=== PATIENT | male | born 1985 | race Caucasian/White ===

== ENCOUNTER 2018-06-17 16:27 | Emergency (ER) | payer BC ==
[2018-06-17 16:41] VITALS: BP 134/80
[2018-06-17] MEDS ORDERED: Morphine 10 MG/ML VIAL (1 ml) IV ONE (16:47)
[2018-06-17] MEDS ORDERED: Ondansetron INJ* 2 MG/ML VIAL IV ONE (16:48)
[2018-06-17] MEDS ORDERED: NS 0.9% 1000 ML** 1,000 ML BOLUS ONE (16:48)
--- NOTE | 2018-06-17 16:54 | UC ---
Abdominal Pain Male HPI - HPI Summary HPI Summary: 32 yo male with periumbilical adb pain that started yesterday Pain was mild and did not interfere with going to work Today the pain has increased and is located in his RLQ anorexic nausea feverish hurts to change positions or walk no UTI symptoms no back pain no vomiting - History of Current Complaint Chief Complaint: UCAbdominalPain Stated Complaint: ABDOMINAL PAIN Time Seen by Provider: 06/17/18 16:31 Hx Obtained From: Patient Onset/Duration: Gradual Onset, Lasting Hours Timing: Constant Severity Initially: Mild Severity Currently: Severe Pain Intensity: 7 Pain Scale Used: 0-10 Numeric Location: Discrete At: RLQ Radiates: No Character: Aching Aggravating Factor(s): Movement Alleviating Factor(s): Rest, Position Associated Signs And Symptoms: Positive: Fever - duane, Decreased Appetite, Nausea. Negative: Diaphoresis, Cough, Chest Pain, Dizzy, Back Pain, Constipation, Blood in Stool, Urinary Symptoms, Vomiting, Diarrhea, Penile Discharge Male Torso: 1 - markedly tender - Allergies/Home Medications Allergies/Adverse Reactions: Allergies Allergy/AdvReac Type Severity Reaction Status Date / Time cefaclor [From [facility]] Allergy Unknown Verified 06/17/18 16:42 Reaction Details Pertussis Vaccines Allergy Unknown Verified 06/17/18 16:42 Reaction Details Home Medications: Home Medications NK [No Home Medications Reported] 06/17/18 [History Confirmed 06/17/18] PMH/Surg Hx/FS Hx/Imm Hx Previously Healthy: Yes Respiratory History: Pneumonia - x1 - Surgical History Surgical History: None - Family History Known Family History: Positive: Non-Contributory - Social History Alcohol Use: Daily Substance Use Type: None Smoking Status (MU): Former Smoker Review of Systems All Other Systems Reviewed And Are Negative: Yes Constitutional: Positive: Fever - duane Skin: Positive: Negative Eyes: Positive: Negative ENT: Positive: Negative Respiratory: Positive: Negative Cardiovascular: Positive: Negative Gastrointestinal: Positive: Abdominal Pain, Nausea Genitourinary: Positive: Negative Motor: Positive: Negative Neurovascular: Positive: Negative Musculoskeletal: Positive: Negative Neurological: Positive: Negative Psychological: Positive: Negative Physical Exam Triage Information Reviewed: Yes Appearance: Well-Appearing, No Pain Distress, Well-Nourished Vital Signs: Initial Vital Signs Temp 100.3 F 06/17/18 16:37 Pulse 68 06/17/18 16:37 Resp 16 06/17/18 16:37 BP 134/80 06/17/18 16:37 Pulse Ox 100 06/17/18 16:37 Vital Signs Reviewed: Yes Eyes: Positive: Conjunctiva Clear ENT: Positive: Hearing grossly normal. Negative: Nasal congestion, Nasal drainage, Tonsillar swelling, Tonsillar exudate, Trismus, Muffled voice, Hoarse voice, Uvula midline Dental Exam: Normal Neck: Positive: Supple, Nontender, No Lymphadenopathy Respiratory: Positive: Lungs clear, Normal breath sounds, No respiratory distress, No accessory muscle use Cardiovascular: Positive: RRR, No Murmur Abdomen Description: Positive: Soft, McBurney's Point Tenderness. Negative: Nontender, CVA Tenderness (R), CVA Tenderness (L), Distended, Hepatomegaly, Peritoneal Signs, Pulsatile Mass, Splenomegaly Bowel Sounds: Positive: Present Musculoskeletal: Positive: ROM Intact, No Edema Neurological: Positive: Alert Psychological Exam: Normal Skin Exam: Normal Abd Pain Male Course/Dx - Course Course Of Treatment: discussed with Dr. Clay To [facility] via EMS - Differential Dx/Clinical Impression Provider Diagnosis: RLQ abdominal pain Discharge - Sign-Out/Discharge Documenting (check all that apply): Patient Departure All imaging exams completed and their final reports reviewed: No Studies - Discharge Plan Condition: Stable Disposition: TRANS HIGHER LVL OF CARE FAC - Billing Disposition and Condition Condition: STABLE Disposition: Trans Higher Lvl of Care Fac
== END 2018-06-17 17:30 | disposition short-term general hospital (02) ==
LOC: UCEAST 16:27
DX: R10.31 Right lower quadrant pain (principal); R10.33 Periumbilical pain; R11.0 Nausea; R50.9 Fever, unspecified; Z88.1 Allergy status to other antibiotic agents; Z88.7 Allergy status to serum and vaccine; Z87.891 Personal history of nicotine dependence
CPT/HCPCS: 99213; G0463; J2270; J2405

== ENCOUNTER 2018-06-17 17:51 | Observation (INO) | payer BC ==
[2018-06-17 18:22] LABS: ABS Basophils 0 10^3/ul (0-0.2); ABS Eosinophils 0 10^3/ul (0-0.6); ABS Lymphocytes 0.8 10^3/ul (1.0-4.8); ABS Monocytes 0.7 10^3/ul (0-0.8); ABS Neutrophils 10.8 10^3/ul (1.5-7.7); ABS Nucleated RBC 0 10^3/ul; Eosinophil % 0.1 %; Hematocrit 43 % (36-46); Hemoglobin 14.8 g/dL (14.0-18.0); Lymphocyte % 6.7 %; Mean Corpuscular HGB Conc 34 g/dL (31-36); Mean Corpuscular Hemoglobin 31 pg (27-31); Mean Corpuscular Volume 90 fL (80-94); Mean Platelet Volume 8.3 fL (7.4-10.4); Nucleated Red Blood Cells % 0; Platelet Count 226 10^3/uL (150-450); Red Blood Count 4.82 10^6 /uL (4.18-5.48); Red Cell Distribution Width 13 % (10.5-15); White Blood Count 12.4 10^3/uL (3.5-10.8)
[2018-06-17 18:33] LABS: Activated Partial Thrombo Time 30.6 seconds (26.0-36.3); INR 1.07 (0.82-1.09)
[2018-06-17] MEDS ORDERED: Piperacillin/Tazobac ADVAN(*) 3.375 GM in NS 0.9% 100 ML* 100 ML IVPB ONE (18:51)
[2018-06-17] MEDS ORDERED: Ondansetron INJ* 2 MG/ML VIAL IV ONE (18:54)
[2018-06-17] MEDS ORDERED: Morphine 4 MG/ML VIAL (1 ml) 4 MG/ML VIAL IV ONE ×2 (18:54→22:20)
--- NOTE | 2018-06-17 18:55 | ED ---
Abdominal Pain/Male - HPI Summary HPI Summary: Pt is a 32 y/o M presenting to the ED via EMS from [facility] with a chief complaint of abd pain sudden onset yesterday around 1500 described as an ache. The pain was relatively manageable, and then when he woke up in the night he noticed it was much worse. This morning, he noticed it was even worse than that, and he has been trying to alleviate it all day. The severity was waxing and waning, and currently it feels like a 7-8/10. He reports associated low-grade fever taken at . The last time he ate was approximately 1500 and he had a banana. He denies vomiting, the pain radiating to his testicles, or urinary sx. He had a pilonidal cyst removed and lung drainage when he was younger, and recently lost 130lbs. He denies hx of asthma, thyroid issues, IBS, or kidney stones. He had an allergic reaction to Ceclor when he was young, pt is unsure of the context. Pt also states he thinks he would be fine to take Amoxicillin, Z-pack, or Penicillin. Fhx HTN HLD. Vital signs while in room: HR 59 bpm, BP 114/85, O2 sat 100% Home Medications Medication Instructions Recorded Confirmed Type NK [No Home Medications Reported] 06/17/18 06/17/18 History - History of Current Complaint Chief Complaint: EDAbdPain Time Seen by Provider: 06/17/18 18:01 Hx Obtained From: Patient, Other: - urgent care, Dr. Zendejas Onset/Duration: Lasting Days, Still Present Timing: Constant, Lasting Days Severity Initially: Moderate Severity Currently: Severe Pain Intensity: 6 Pain Scale Used: 0-10 Numeric Location: Discrete At: RLQ Radiates: No Character: Other: - aching Aggravating Factor(s): Nothing Alleviating Factor(s): Nothing Associated Signs And Symptoms: Positive: Fever. Negative: Urinary Symptoms, Vomiting - Allergies/Home Medications Allergies/Adverse Reactions: Allergies Allergy/AdvReac Type Severity Reaction Status Date / Time cefaclor [From Ceclor] Allergy Unknown Verified 06/17/18 16:42 Reaction Details Pertussis Vaccines Allergy Unknown Verified 06/17/18 16:42 Reaction Details PMH/Surg Hx/FS Hx/Imm Hx Previously Healthy: Yes Endocrine/Hematology History: Denies: Hx Thyroid Disease Respiratory History: Denies: Hx Asthma GI History: Denies: Hx Irritable Bowel History: Denies: Hx Kidney Stones - Surgical History Surgery Procedure, Year, and Place: Pilonidal cyst removal, lung drainage due to PNA at age 8 Infectious Disease History: No Infectious Disease History: Denies: Traveled Outside the [place] in Last 30 Days - Family History Known Family History: Positive: Hypertension, Other - HLD - Social History Lives: With Family Alcohol Use: Daily Hx Substance Use: No Substance Use Type: Reports: None Hx Tobacco Use: Yes Smoking Status (MU): Former Smoker Review of Systems Positive: Fever Cardiovascular: Negative Respiratory: Negative Positive: Abdominal Pain. Negative: Vomiting Genitourinary: Negative Musculoskeletal: Negative Skin: Negative Neurological: Negative Psychological: Normal All Other Systems Reviewed And Are Negative: Yes Physical Exam - Summary Physical Exam Summary: Appearance: Ill-appearing, moderate pain distress, well-nourished Skin: Warm, color reflects adequate perfusion, dry Head: Normal Head/Face inspection, atraumatic Eyes: Conjunctiva clear ENT: Normal inspection Neck: Supple, no nodes, no JVD Respiratory: Lungs clear, normal breath sounds, no respiratory distress Cardio: RRR, No murmur, pulses normal, brisk capillary refill Abdomen: Soft, RLQ tenderness, voluntary guarding in the RLQ, no rebound, no masses, non-distended. Bowel sounds: Present Musculoskeletal: Strength Intact/ROM intact, no calf tenderness, no edema. Psychological: Normal Neuro: Alert, muscle tone normal, no focal deficit : No inguinal or femoral hernias. Testicles descended bilaterally, nontender, no masses. Triage Information Reviewed: Yes Vital Signs On Initial Exam: Initial Vitals Temp Pulse Resp BP Pulse Ox 98.3 F 61 16 114/85 99 06/17/18 17:56 06/17/18 17:56 06/17/18 17:56 06/17/18 17:56 06/17/18 17:56 Vital Signs Reviewed: Yes Diagnostics - Vital Signs Vital Signs Temp Pulse Resp BP Pulse Ox 06/17/18 17:56 98.3 F 61 16 114/85 99 - Laboratory Lab Results: Lab Results 06/17/18 06/17/18 Range/Units 18:13 18:13 WBC 12.4 H (3.5-10.8) 10^3/uL RBC 4.82 (4.18-5.48) 10^6 /uL Hgb 14.8 (14.0-18.0) g/dL Hct 43 (36-46) % MCV 90 (80-94) fL MCH 31 (27-31) pg MCHC 34 (31-36) g/dL RDW 13 (10.5-15) % Plt Count 226 (150-450) 10^3/uL MPV 8.3 (7.4-10.4) fL Neut % (Auto) 87.2 % Lymph % (Auto) 6.7 % Dickson % (Auto) 5.6 % Eos % (Auto) 0.1 % Baso % (Auto) 0.4 % Absolute Neuts (auto) 10.8 H (1.5-7.7) 10^3/ul Absolute Lymphs (auto) 0.8 L (1.0-4.8) 10^3/ul Absolute Monos (auto) 0.7 (0-0.8) 10^3/ul Absolute Eos (auto) 0 (0-0.6) 10^3/ul Absolute Basos (auto) 0 (0-0.2) 10^3/ul Absolute Nucleated RBC 0 10^3/ul Nucleated RBC % 0 INR (Anticoag Therapy) 1.07 (0.82-1.09) APTT 30.6 (26.0-36.3) seconds Result Diagrams: 06/17/18 18:13 06/17/18 18:14 Lab Statement: Any lab studies that have been ordered have been reviewed, and results considered in the medical decision making process. Re-Evaluation - Re-Evaluation First Eval Re-Evaluation Time: 19:00 Change: Improved Comment: States pain is improved after morphine. No vomiting. Abdominal Pain Male Course/Dx - Course Course Of Treatment: Pt is a 32 y/o M presenting to the ED with a chief complaint of abd pain onset last night that has gradually progressed to a 7-8/ 10 in severity currently. He reports associated low-grade fever taken at . The last time he ate was approximately 1500 and he had a banana. He denies vomiting, the pain radiating to his testicles, or urinary sx. He had a pilonidal cyst removed and lung drainage when he was younger, and recently lost 130lbs. He denies hx of asthma, thyroid issues, IBS, or kidney stones. He had an allergic reaction to Ceclor when he was young, pt is unsure of the context. Pt also states he thinks he would be fine to take Amoxicillin, Z-pack, or Penicillin. Fhx HTN HLD. The pt will be signed out to Dr. Hernandez pending imaging and dispo. - Diagnoses Differential Diagnosis/HQI/PQRI: Appendicitis, Bowel Obstruction, Gall Bladder Disease, Pancreatitis Provider Diagnoses: Abdominal pain Discharge - Sign-Out/Discharge Documenting (check all that apply): Sign-Out Patient Signing out patient TO: Daniel Hernandez - Discharge Plan Condition: Stable Referrals: Elif Hansen MD [Primary Care Provider] - - Billing Disposition and Condition Condition: STABLE - Attestation Statements Document Initiated by Alexandriaibla: Yes Documenting Scribe: Radha Peter Provider For Whom Honey is Documenting (Include Credential): Dr. Rita Clay MD. Scribe Attestation: Radha Tracy scribed for Dr. Rita Clay MD. on 06/17/18 at 2136. Scribe Documentation Reviewed: Yes Provider Attestation: The documentation as recorded by the Radha mcgovern accurately reflects the service I personally performed and the decisions made by , Dr. Rita Clay MD. Status of Scribe Document: Viewed
[2018-06-17 18:57] LABS: Albumin 4.9 g/dL (3.2-5.2); Albumin/Globulin Ratio 1.9 (1-3); BUN/Creatinine Ratio 16.7 (8-20); C Reactive Protein 16.23 mg/L (<8.01); Calcium 9.7 mg/dL (8.6-10.3); EGFR African American 129.8 (>60); EGFR Non-African American 107.3 (>60); Globulin 2.6 g/dL (2-4); Magnesium 1.9 mg/dL (1.9-2.7); Potassium 4.1 mmol/L (3.5-5.0); Total Bilirubin 1.1 mg/dL (0.2-1.0); Total Protein 7.5 g/dL (6.4-8.9)
[2018-06-17] MEDS ORDERED: Piperacillin/Tazobac (*) 3.375 GM BAG ONE (19:02)
--- NOTE | 2018-06-17 19:16 | ED ---
Progress - Progress Note Progress Note: This patient is signed out from Dr. Clay at 19:00 awaiting an Appendix US. An Appendix US, as per radiologist reveals: Appendix is not visualized. No evidence of free fluid. A CT A/P is ordered, revealing, as per radiologist: Early appendicitis. The appendix is dilated to approximately 1.1 cm. There is a small amount of mesenteric information. No significant free abdominal fluid. No signs of perforation. No associated abscess. No bowel obstruction. ED Physician has reviewed imaging reports. Re-Evaluation - Re-Evaluation First Eval Re-Evaluation Time: 22:50 Change: Unchanged Comment: Results discussed with patient. Informed patient of admission. Course/Dx - Course Course Of Treatment: Patient with worsening pain in the right lower quadrant who is pending CT of the abdomen and pelvis. The CT was positive for early appendicitis per the radiologist. IV Zosyn was given. His pain was improving with treatment. The surgeon was contacted and will plan for operation. - Diagnoses Provider Diagnoses: Appendicitis - Provider Notifications Discussed Care Of Patient With: Rob Bone - surgery Time Discussed With Above Provider: 22:42 Instructed by Provider To: Admit As Inpatient Discharge - Sign-Out/Discharge Documenting (check all that apply): Patient Departure - admit Patient Received Moderate/Deep Sedation with Procedure: No - Discharge Plan Condition: Fair Disposition: ADMITTED TO [facility] - Billing Disposition and Condition Condition: FAIR Disposition: Admitted to [facility] - Attestation Statements Document Initiated by Honey: Yes Documenting Scribe: Cande Snyder Provider For Whom Elizabethe is Documenting (Include Credential): Daniel Hernandez MD Scribe Attestation: Cande Tracy, scribed for Daniel Hernandez MD on 06/18/18 at 0327. Scribe Documentation Reviewed: Yes Provider Attestation: The documentation as recorded by the Cande mcgovern accurately reflects the service I personally performed and the decisions made by , Daniel Hernandez MD Status of Scribe Document: Viewed
[2018-06-17] MEDS ORDERED: Ketorolac INJ* 30 MG/ML 1 ML VIAL IV PUSH ONE (20:04)
[2018-06-17] MEDS ORDERED: Ketorolac INJ* 30 MG/ML 1 ML VIAL ONE (20:05)
[2018-06-17 20:29] LABS: Urine Appearance Clear; Urine Bilirubin Negative (Negative); Urine Blood Negative (Negative); Urine Color Yellow; Urine Glucose Negative (Negative); Urine Ketones 1+ (Negative); Urine Nitrite Negative (Negative); Urine Protein Negative (Negative); Urine Urobilinogen Negative (Negative)
[2018-06-17] MEDS ORDERED: Iohexol 300* (CONTRAST) 10 ML SDV IV ONE (21:04)
[2018-06-17] MEDS ORDERED: Morphine 4 MG/ML VIAL (1 ml) 4 MG/ML VIAL ONE (22:20)
[2018-06-17] MEDS ORDERED: NS 0.9% 1000 ML** 1,000 ML IV ONE (22:20)
[2018-06-17] MEDS ORDERED: Ondansetron INJ* 2 MG/ML VIAL IV PRN (22:56)
[2018-06-17] MEDS ORDERED: Lactated Ringers 1000 ML Bag* 1,000 ML IV SCH (23:00)
[2018-06-18] MEDS: HYDROmorphone INJ1* 1 MG/ML SYRINGE IV SLOW PU PRN ×3 (00:10→06:44)
[2018-06-18] MEDS: Piperacillin/Tazobactam VIAL*) 3.375 GM in NS 0.9% 100 ML* 100 ML IVPB SCH ×2 (00:14→08:05)
[2018-06-18 06:18] LABS: ABS Basophils 0 10^3/ul (0-0.2); ABS Eosinophils 0 10^3/ul (0-0.6); ABS Lymphocytes 1.8 10^3/ul (1.0-4.8); ABS Monocytes 0.8 10^3/ul (0-0.8); ABS Neutrophils 6.4 10^3/ul (1.5-7.7); ABS Nucleated RBC 0 10^3/ul; Eosinophil % 0.3 %; Hematocrit 37 % (36-46); Hemoglobin 12.9 g/dL (14.0-18.0); Lymphocyte % 20.2 %; Mean Corpuscular HGB Conc 35 g/dL (31-36); Mean Corpuscular Hemoglobin 31 pg (27-31); Mean Corpuscular Volume 90 fL (80-94); Mean Platelet Volume 8.6 fL (7.4-10.4); Nucleated Red Blood Cells % 0; Platelet Count 153 10^3/uL (150-450); Red Cell Distribution Width 13 % (10.5-15); White Blood Count 9.1 10^3/uL (3.5-10.8)
[2018-06-18] MEDS: NS 0.9% 1000 ML** 1,000 ML IV SCH ×2 (06:43)
[2018-06-18] MEDS ORDERED: Bupivacaine 0.25% EPI 200,000* 30 ML SDV ONE (10:19)
[2018-06-18] MEDS ORDERED: fentaNYL* 50 MCG/ML 2 ML VIAL (100 MCG VIAL) ONE ×2 (10:31→11:50)
[2018-06-18] MEDS ORDERED: Midazolam* 1 MG/ML 2 ML VIAL (2 MG) ONE (10:32)
[2018-06-18] MEDS ORDERED: Dexamethasone IV* 4 MG/ML 1 ML (4 MG) ONE (10:33)
[2018-06-18] MEDS ORDERED: Ondansetron INJ* 2 MG/ML VIAL ONE ×2 (10:33→12:23)
[2018-06-18] MEDS ORDERED: Ketorolac INJ* 30 MG/ML 1 ML VIAL ONE (10:33)
[2018-06-18] MEDS ORDERED: Lidocaine 2% PF * 5 ML VIAL ONE (10:33)
[2018-06-18] MEDS ORDERED: Propofol* 10 MG/ML 20 ML BTL ONE (10:33)
[2018-06-18] MEDS ORDERED: Rocuronium* 10 MG/ML VIAL ONE (10:34)
[2018-06-18] MEDS ORDERED: Succinylcholine* 20 MG/ML 10 ML VIAL ONE (10:34)
[2018-06-18] MEDS ORDERED: oxyCODONE/Acetamin 5/325 MG* TAB PO ONE (10:54)
[2018-06-18] MEDS ORDERED: Sugammadex * 200 MG/2 ML VIAL IV PUSH ONE (11:16)
[2018-06-18] MEDS ORDERED: EPHEDrine (Pressors)* 50 MG/ML VIAL ONE (11:16)
[2018-06-18] MEDS ORDERED: Naloxone* 0.4 MG/ML 1 ML VIAL IV PRN (11:38)
[2018-06-18] MEDS ORDERED: HYDROmorphone INJ1* 1 MG/ML SYRINGE IV PRN (11:38)
[2018-06-18] MEDS ORDERED: DiMENhydriNATE IV* 50 MG/ML VIAL IV PUSH PRN (11:38)
[2018-06-18] MEDS ORDERED: fentaNYL* 50 MCG/ML 2 ML VIAL (100 MCG VIAL) IV PRN (11:38)
--- NOTE | 2018-06-18 12:54 | HP ---
CC: Dr. Pozo; Dr. Elif Hansen HISTORY AND PHYSICAL: DATE OF ADMISSION: 06/18/18 CHIEF COMPLAINT: Abdominal pain. HISTORY OF PRESENT ILLNESS: The patient is a 32-year-old male in usual state of good health. Then, approximately 36 hours ago, started to have some sharp central abdominal pain. He points to the doni umbilical area. He was somewhat anorexic. He had not had trauma or injury or any antecedent illness. He has not had something like this before and then, by yesterday afternoon, the pain was becoming m ore severe and persistent and shifted to the right lower quadrant, so he decided to come to the [facility] ency room. He has no trauma, accident, or injury. No antecedent illness. No chronic abdominal prob lems. PAST MEDICAL HISTORY: Reveals pneumonia at age 8 that required drainage of fluid from his chest. He has also had pilonidal excision at age 21. MEDICATIONS: He denies regular medications. ALLERGIES: He quotes an allergy to CEFACLOR but has no idea what type of reaction might have been in the past. FAMILY HISTORY: Noncontributory. No bleeding tendencies or anesthesia reactions. No Crohn's disease or colitis in the family. SOCIAL HISTORY: He is . They have 2 young children at home including a . He is home on paternity leave right now. He is a nonsmoker. 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 REVIEW OF SYSTEMS: Multisystem review is relatively benign. No chest pain, heart pain, angina pain, or other cardiac disease. No emphysema, bronchitis, or chronic lung disease. He did have pneumonia as a child but has been fine ever since. He is able to exercise without unusual dyspnea. He has no Crohn's disease, colitis, ulcer disease, kidney disease, kidney stones, or chronic bladder infection s. No hepatobiliary disease. No diabetes, thyroid, or other endocrine. No neuromuscular or psych i ssues. PHYSICAL EXAMINATION GENERAL: He is a well-developed, well-nourished male consistent with stated age. VITAL SIGNS: He is 5 feet 7 inches, 170 pounds with BMI of 26. Heart rate 66, blood pressure 98/54, respirations 16 and unlabored, temperature 99.4 (it was 101.6 in the emergency room), O2 saturations 100%. HEENT: Head and neck are unremarkable. Eyes are clear. NECK: Supple. LUNGS: Clear bilaterally with good aeration. There is a well-healed scar in the lateral right chest consistent with a previous chest tube. HEART: Regular with no abnormal sounds. ABDOMEN: Soft, flat, nondistended. He is quite tender in the right lower quadrant with focal reboun d tenderness. Mild Rovsing sign. Mild cough tenderness. No gross peritonitis and no obvious hernia s. EXTREMITIES: Well perfused and without edema. SKIN: Warm and well perfused. He is not diaphoretic. He is not jaundiced. DIAGNOSTIC STUDIES/LAB DATA: Laboratory studies showed slight elevated white count. Hemoglobin is normal. Electrolytes are normal. CRP is elevated. CAT scan shows evidence of early acute appendicitis. IMPRESSION AND PLAN: Healthy 32-year-old male with evidence of early acute appendicitis. I have discussed this with him at length. He understands the nature of appendicitis, the rationale f or laparoscopic appendectomy. He understands the risks, the recovery, and the alternatives to surger y, and would like to proceed in that fashion, so we will proceed with laparoscopic appendectomy as e operative schedule permits. [id number]/[facility] #: [id number]
[2018-06-18 12:58] VITALS: BP 116/71
--- NOTE | 2018-06-18 20:59 | OP ---
CC: Dr. Yasmany Pozo; Dr. Elif Hansen OPERATIVE REPORT: DATE OF OPERATION: 06/18/18 DATE OF : 89 SURGEON: Yasmany Pozo MD. LOCATION DIRECTOR: None. ANESTHESIOLOGIST: Dr. Mcpherson. ANESTHESIA: General anesthetic, local infiltration. PRE-OP DIAGNOSIS: Appendicitis. POST-OP DIAGNOSIS: Appendicitis. OPERATIVE PROCEDURE: Laparoscopic appendectomy. DESCRIPTION OF PROCEDURE: The patient was supine on the operating room table. After adequate general anesthetic, compression stockings, Parker-Hugger warmer, and intravenous antibiotics, the abdomen was clipped and prepped with antiseptic, draped in a sterile fashion. Local infiltrative anesthesia was administered and a small umbilical incision was created. Blunt port cannula was placed. Insufflatio n was carried out with carbon dioxide. Additional cannulae, 5 mm left lower quadrant and left mid ab domen, were placed through small stab wounds under direct vision. The appendix had early suppurative changes, just a teeny bit of cloudy fluid, but no evidence of perforation or gangrene or anything lik e that. It was tented upward and the base of the appendix was not particularly inflamed. It was div ided using an Endo RYAN stapler with 60 mm willard cartridge. The appendix was placed in a retrieval bag and brought out through the umbilical site. The operative field was examined. A little bit of purul ent fluid was mopped up with a 4x4 and the suture line was examined and was in excellent condition. The cannulae were removed, pneumoperitoneum allowed to escape. The umbilical fascia was closed with 0 Vicryl, skin with 5-0 Vicryl, followed by Steri-Strips. He tolerated the procedure well, was awake harvey and brought to recovery in good condition. No complications. No drains. PATHOLOGICAL SPECIMENS: Appendix. COUNTS: Sponge and instrument counts correct. ESTIMATED BLOOD LOSS: Was less than 10 mL. [id number]/[facility] #: [id number]
--- NOTE | 2018-06-18 22:15 | DS ---
CC: Dr. Yasmany Pozo; Dr. Elif Hansen. DISCHARGE SUMMARY: DATE OF ADMISSION: 06/18/18 DATE OF DISCHARGE: 06/18/18 PRINCIPAL DIAGNOSIS ON THIS ADMISSION: Acute appendicitis. OPERATIVE PROCEDURE ON THIS ADMISSION: Laparoscopic appendectomy. COMPLICATIONS: None. HOSPITAL COURSE: The patient is a 32-year-old male who came to the hospital in the wee hours of the morning, was admitted with acute appendicitis, and was taken to the operating room later that morning . He underwent laparoscopic appendectomy, had an uneventful recovery, and was discharged home in goo d condition in the early afternoon. He was discharged home with an instruction sheet and prescriptio ns and will follow up in the office in about a week. [id number]/[facility] #: [id number]
== END 2018-06-18 13:00 | disposition home or self-care (01) ==
LOC: ED 17:51 → INTOOBSV 22:56 → SSU 22:56
PROVIDERS: ADMIT Surgery; ATTEND Surgery
DX: K35.80 Unspecified acute appendicitis (principal); R10.31 Right lower quadrant pain; Z87.891 Personal history of nicotine dependence
CPT/HCPCS: 36415; 74177; 76705; 80053; 81003; 82150; 82550; 83605; 83690; 83735; 85025; 85610; 85730; 86140; 88304; 88341; 88342; 88360; 96365; 96372; 96375; 96376; 99284; G0378; J0330; J1100; J1170; J1885; J2250; J2270; J2405; J2543; J2704; J3010; Q9967